=== PATIENT | male | born 2005 | race Two or more races ===

== ENCOUNTER 2025-02-11 23:00 | Emergency (ER) | payer BC, SELFPAY ==
[2025-02-11 23:02] VITALS: BP 122/71; PULSE 50; RESP 16; TEMP 36.3; O2SAT 100; BMI 20.6
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
--- NOTE | 2025-02-11 23:27 | CRLHL7_ITS ---
For Patients: As a result of the Cures Act, medical imaging exams and procedure reports are released immediately into your electronic medical record. You may view this report before your referring provider. If you have questions, please contact your health care provider. Indication: Trauma. Technique: Right shoulder 3 views. Comparison: None. Findings: Bones: No acute fracture or dislocation identified. Joint spaces: Unremarkable. Soft tissues: Unremarkable. Impression: No acute findings. Dictated by Brett Hatch MD @ 02/11/2025 11:53:36 PM (Electronically Signed)
[2025-02-11] MEDS: IBUPROFEN 200 MG TABLET 600 MG PO (23:33)
--- OUTSIDE RECORDS SUMMARY | 2025-02-11 23:42 | XMS_ITS | Clinical Summary ---
Author Organization [facility] Address [address] [place] [id number] Care Team Providers Care Line Haul Driver Name Role Phone Brett Vazquez MD Primary Care Provider [phone] Allergies No known active allergies Medications * This document contains information received from the source organization and may not represent a complete record from that organization. guanFACINE (INTUNIV) 1 MG TB24 24 hr tablet TK 1 T PO QAM 0 04/02/2019 Active Active Problems Problem Noted Date Diagnosed Date Hand fracture, right, closed, initial encounter 02/11/2017 Immunizations Immunization Administration Dates Next Due DTAP (<7y) 09/14/2010,01/12/2010,01/15/2007 DTaP/HepB/IPV 04/03/2006,01/25/2006,2005 HEPA 10/31/2007,10/21/2007,01/15/2007 HIB (PRP-T) 10/02/2006,01/25/2006,2005 HepB 04/03/2006,01/25/2006,2005 MMR (MMRII) 09/14/2010,01/12/2010,10/02/2006 Meningococcal ACWY (Menactra ) 02/09/2017 Pneumococcal (PCV 7) 01/12/2010,10/03/19 07,04/03/2006,01/25/2006, 2005 Poliovirus, inactivated (IPV) 09/14/2010, 010 TDAP Vaccine (Adacel) 02/09/2017 Varicella (Varivax) 09/14/2010,01/12/2010,2006 Social History Tobacco Use Types Packs/Day Years Used Date Smoking Tobacco: Never Smokeless Tobacco: Never Alcohol Use Standard Drinks/Week Comments No 0 (1 standard drink = 0.6 oz pur e alcohol) Adolescent Education Answer Date Record ed Getting School Help Needed Not on file 04/16 Sex and Gender Information Value Date Recorded Sex Assigned at Not on file 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 Gender Identity Not on file Sexual Orientation Not on file Last Filed Vital Signs Vital Sign Reading Time Taken Comments Blood Pressure 107/65 10/05/2022 12:33 AM CDT Pulse 66 10/05/2022 12:33 AM CDT Temperature 36.4 C (97.6 F) 10/05/2022 12:33 AM CDT Respiratory Rate 13 10/05/2022 12:33 AM CDT Oxygen Saturation 99% 10/05/2022 12:33 AM CDT Inhaled Oxygen Concentration - - Weight 63.9 kg (140 lb 14 oz) 10/04/2022 9:27 PM CDT Height 151.1 cm (4' 11.5) 04/19/2018 3:18 PM CD T Body Mass Index - - Plan of Treatment Health Maintenance Due Date Last Done Comments ADVANCE CARE PLANNING 2005 ANNUAL REVIEW OF HM ORDERS 2005 HIV SCREENING 2020 HPV VACCINE (1 - Male 3-dose series) 2020 MENINGITIS B VACCINE (1 of 2 - Standard) 2021 HEPATITIS C SCREENING 09/16/2023 YEARLY PREVENTIVE VISIT 02/23/2024 02/23/20 23, 04/19/2018, 02/09/2017 COVID-19 VACCINE ( - season) 2024 PHQ-2 (once per calendar year) 2024 INFLUENZA VACCINE (#1) 2025 06/27/2006, 2005 DTAP/TDAP/TD VACCINE (7 - Td or Tdap) 02/09/2027 02/09/2017, 09/14/2010, 01/12/2010, Additional history exists ZOSTER VACCINE (1 of 2) 09/16/2055 HEPATITIS B VACCINE Completed 04/03/2006, 04/03/2006, 01/25/2006, Additional history exists HIB VACCINE Completed 10/02/2006, 09/14, 01/25/2006, Additional history exists PNEUMOCOCCAL VACCINE: PEDIATRICS (0 to 5 YEARS) AND AT-RISK PATIENTS (6 to 49 YEARS) Aged Out 01/12/2010, 01/12/2010, 10/02/2006, Additional history exists No longer eligible based on patient's age to complete this topic IPV VACCINE Completed 09/14/2010, 12/16, 04/03/2006, Additional history exists VARICELLA VACCINE Completed 09/14/2010, , 10/02/2006 MENINGITIS VACCINE Aged Out 02/09/2017 No longer eligible based on patient's age to complete this topic Care Teams Line Haul Driver Relationship Specialty Start Date End Date Brett Vazquez MD [facility] [place] [address] PCP - General Internal Medicine 04/19/18
--- OUTSIDE RECORDS SUMMARY | 2025-02-11 23:42 | XMS_ITS | Clinical Summary ---
Author Organization [facility] Address [address] [place] [id number] Care Team Providers Care Supervisor Sewing Department Name Role Phone Pcp, No Primary Care Provider Unavailabl e Allergies No known active allergies Medications buprenorphine-n aloxone, 8 mg-2 mg, (SUBOXONE) (8-2 mg/tablet) sublingual tablet PLACE 1 TABLET EVERY DAY BY SUBLINGUAL ROUTE FOR 28 DAYS. 3 Active famotidine (PEPCID) 20 mg tabletIndicatio ns:Heartburn Take 1 Tablet (20 mg) by mouth two times daily. 60 Tablet 1 4 Active Active Problems Problem Noted Date Diagnosed Date Sickle cell trait 12/05/2013 [facility] (well child check) 01/12/2010 Immunizations Immunization Administration Dates Next Due DTaP 09/14/2010,01/12/2010,01/15/2007 [id number] (Pediarix) 04/03/2006,01/25/2006,0 2005 HIB PRP-OMP (PedvaxHIB) 10/02/2006,01/25/2006, Hepatitis A (Peds) 10/21/2007,01/15/2007 Hepatitis A (Peds),Unspecified 10/31/2007 Hepatitis A, Unspecified 10/21/2007,01/15/2007 Inactivated Polio Vaccine 09/14/2010,01/12/2010 MENINGOCOCCAL VACCINE 2 VIAL [id number] (MENVEO) 02/22/2023 MMR 09/14/2010,01/12/2010,10/02/2006 Meningococcal Vaccine (Menactra) 02/09/2017 Pneumococcal conj 13-Valent (Prevnar 13) 01/12/2010 Pneumococcal conj 7-Valent (Prevnar 7) 0 01/12/2010,10/02/2006,04/03/2006,01/25,2005 Tdap 02/09/2017 Varicella Vaccine 09/14/2010,01/12/2010,10/03/19 07 Family History Medical History Relation Name Comments Good Health Father Heart Disease Maternal Grandmother Good Health Mother Heart Disease Paternal Aunt Relation Name Status Comments Father Maternal Grandmother Mother Paternal Aunt Social History Tobacco Use Types Packs/Day Years Used Date Smoking Tobacco: Never Smokeless Tobacco: Never Comments:both mom and dad sm nest[place] outside Alcohol Use Standard Drinks/Week Comments Not Currently 0 (1 standard drink = 0.6 oz pur e alcohol) Occional PHQ-2 Answer Date Recorded PHQ-2 TOTAL SCORE 0 02/22/2023 Social Connections Answer Date Recorded Frequency of Communication with Friends and Fami ly Not on file 02/22/2023 Interpersonal Safety Answer Date Record ed Are you being hit, kicked, p ushed or yelled at (see row info)? 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 Gender Identity Male 03/12/2024 9:22 PM CDT Sexual Orientation Straight 03/12/2024 9: 22 PM CDT Obstetrics History Last Filed Vital Signs Vital Sign Reading Time Taken Comments Blood Pressure 125/82 03/12/2024 9:11 PM CDT Pulse 84 03/12/2024 9:11 PM CDT Temperature 36.5 C (97.7 F) 03/12/2024 9:11 PM CDT Respiratory Rate 19 03/12/2024 9:11 PM CDT Oxygen Saturation 98% 03/12/2024 9:11 PM CDT Inhaled Oxygen Concentration - - Weight 72 kg (158 lb 11.2 oz) 03/12/2024 9:10 PM CDT Height 175.3 cm (5' 9) 03/12/2024 9:10 PM CDT Body Mass Index 23.44 03/12/2024 9:10 PM CDT Body Mass Index Percentile 65.51% 03/12/2024 9:1 0 PM CDT Growth Chart: [facility] (Boys, 2-2 0 Years) Plan of Treatment Health Maintenance Due Date Last Done Comments HIV for age 15-65 2020 HPV series for age 9-26 (1 - Male 3-dose series) 2020 Hepatitis C screening for ag e 18-79 09/16/2023 Well Child Check for age 3-20 02/23/2024, 03/16/2015, 12/02/2013, Additional history exists Depression screening for age 12+ 02/25/2024 02/25/20, 02/22/2023 COVID-19 vaccine series ( season) 2024 BMI (ht and wt on same day) for age 18+ 10/22/2024 10/23/2023 Influenza Vaccine (#1) 2025 Tetanus booster 02/09/2027 02/09/2017 Hepatitis B series for 19+ Completed 04/03, 01/25/2006, 2005 Pneumococcal series for age 6-49 Completed 01/12/2010, 01/12/2010, 10/02/2006, Additional history exists Meningococcal series for age 11-21 Completed 2022, 02/09/2017 Insurance [facility] * Guarantor: [employer] Account Type Relation to Patient Date of Phone Billing Address Personal/Family [id number] [place] [address] [facility] Care Teams Supervisor Sewing Department Relationship Specialty Start Date End Date Pcp, Kylee Castillo PCP - General 02/22/23
== END 2025-02-12 00:32 | disposition home or self-care (01) ==
PROVIDERS: Emergency Provider Emergency Medicine
DX: M25.511 Pain in right shoulder (principal); V29.39XA Other motorcycle (driver) (passenger) injured in unspecified nontraffic accident, initial encounter
CPT/HCPCS: 73030; 99283; 99284; A9270